=== PATIENT | male | born 1980 | race Caucasian/White ===

== ENCOUNTER → 2023-07-08 09:07 | Outpatient (CLI) | payer OTHER, SELFPAY ==
--- NOTE | 2023-07-08 09:16 | DI.ECHO.S_ITS ---
[facility]---------+ [facility] +---------+ : : [address] : [address] : : : : [id number] : : : : Phone: [phone]---------+ Echocardiogram Report + + :Name: JENNIFER BARKER Study Date: 07/08/2023 Height: 69 in : :[facility] ReadingLocation: Weight: 223 lb : : Gender: Male BSA: 2.2 m2 : :: 1980 Age: 43 yrs BP: 146/91 mmHg: :Reason For Study: HEART DISEASE : :Ordering Physician: ESTELITA, : :ANGELLA Performed By: Azucena Zaragoza : :Referring: ANGELLA CAPONE : + + Interpretation Summary Normal echo study. Procedure: A two-dimensional transthoracic echocardiogram with color flow and Doppler was performed. The study quality was technically adequate. There is no prior echocardiogram noted for this patient. The patient was in sinus rhythm with heart rates between 60-74 bpm during the exam. Left Ventricle: The left ventricle is normal in size and wall thickness. The ejection fraction is estimated to be 60-65%. There are no focal wall motion abnormalities. Diastolic parameters suggest probable normal left ventricular diastolic function and normal filling pressures. Right Ventricle: The right ventricle is normal in size and function. Atria: The left atrial size is normal. Right atrial size is normal. There is no Doppler evidence for an interatrial shunt. Mitral Valve: The mitral valve is normal in structure and function. There is trace mitral regurgitation. Aortic Valve: The aortic valve is trileaflet. The aortic valve opens well. There is no aortic valve stenosis. There is trace aortic regurgitation. Tricuspid Valve: The tricuspid valve is normal in structure and function. No tricuspid regurgitation. Pulmonic Valve: The pulmonic valve leaflets are thin and pliable; valve motion is normal. There is no pulmonic valvular regurgitation. Great Vessels: The aortic root is normal size. The dimensions of the ascending aorta are normal. The IVC is of normal diameter and collapses greater than 50% with a sniff. This suggests a low right atrial pressure of 3 mm Hg. Pericardium/ Pleura There is no pericardial effusion. There is no pleural effusion. MMode/2D Measurements & Calculations LVIDd: 4.8 cm LVOT diam: 2.3 cm LVIDs: 3.3 cm Ao root diam: 3.1 cm FS: 30.7 % asc Aorta Diam: 3.0 cm EPSS: 0.61 cm Ao Arch Diam (Prox Trans): 2.9 cm IVSd: 0.82 cm LVPWd: 1.0 cm LV rodriguez. diameter/BSA (cm/m^2): 2.2 LV sys. diameter/BSA (cm/m^2): 1.5 LA A2 area: 19.5 cm2 RA long axis: 5.0 cm LA A4 area: 16.5 cm2 RA area: 15.9 cm2 LA length (vol): 5.1 cm RA vol: 43.2 ml LA vol: 53.9 ml RA : 20.0 ml/m2 LA vol index: 24.9 ml/m2 IVC diam: 1.9 cm RVD1 (basal): 3.4 cm RVD2 (mid): 2.6 cm TAPSE: 2.2 cm Doppler Measurements & Calculations Ao V2 max: 113.1 cm/sec LVOT Max Luís: 93.5 cm/sec Ao V2 mean: 75.5 cm/sec LV V1 max P.5 mmHg Ao max P.1 mmHg LV V1 VTI: 18.9 cm Ao mean P.6 mmHg ANNMARIE(I,D): 3.3 cm2 Ao V2 VTI: 23.9 cm ANNMARIE(V,D): 3.5 cm2 sev ratio: 0.79 ANNMARIE indexed to BSA (cm^2/m^2): 1.5 MV E max luís: 62.6 cm/sec PA V2 max: 107.2 cm/sec MV A max luís: 62.6 cm/sec PA V2 mean: 76.8 cm/sec MV E/A: 1.0 PA mean P.6 mmHg Med Peak E' Luís: 7.8 cm/sec PA pr(Accel): 15.6 mmHg E/E' med: 8.0 Lat Peak E' Luís: 10.2 cm/sec E/E' lat: 6.2 E/e' average: 7.1 MV dec time: 0.19 sec SV(LVOT): 79.3 ml Electronically signed by: Elsie Patiño on Reading Physician:07/08/2023 11:27 PM
== END ==
PROVIDERS: PCP Physician Assistant; Referring Provider Family Medicine; Visit Provider Family Medicine
DX: I51.9 Heart disease, unspecified (principal)
CPT/HCPCS: 93306